=== PATIENT | male | born 2000 | race Caucasian/White ===

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

== ENCOUNTER → 2018-06-04 | Outpatient (CLI) | payer BC ==
--- NOTE | 2018-06-04 16:34 | CT ---
EXAMINATION TYPE: CT brain wo con DATE OF EXAM: 06/04/2018 COMPARISON: Loss of consciousness, concussion INDICATION: concussion, LOC with head injury 1 week ago during basketball game DLP: 1054.2 mGycm, Automated exposure control for dose reduction was used. CONTRAST: None CT of the brain is performed utilizing 3 mm thick sections through the posterior fossa and 3 mm thick sections through the remaining calvarium. Study is performed within 24 hours of arrival to the [facility]. No abnormal hyperdensity is present to suggest an acute intracranial hemorrhage. No mass lesion is evident. No acute infarcts are evident. Ventricles and sulci are appropriate for the patient age. Paranasal sinuses and mastoid air cells within the [id number] are clear. IMPRESSIONS: 1. Normal CT Brain
== END ==
LOC: RADCTMAIN 16:10
PROVIDERS: ATTEND Internal Medicine
DX: S06.0X0S Concussion without loss of consciousness, sequela (principal)
CPT/HCPCS: 70450